=== PATIENT | female | born 1950 | race Caucasian/White ===

== ENCOUNTER 2025-04-04 12:29 | Outpatient (CLI) | payer MEDICARE, BC ==
[~2025-04-04] VITALS: Ht 165.7 cm; Wt 59.0 kg
[2025-04-04 12:59] LABS: ABG BASE EXCESS -0.3 mmol/L (-2.0-3.0); ABG HCO3 23.8 mmol/L (21.0-28.0); ABG OXYGEN SATURATION 95.6 % (94.0-98.0); ABG PH (T) 7.426 (7.350-7.450); ABG PO2 (T) 80.3 mmHg (83.0-108.0); ALLEN'S TEST POSITIVE; FCOHb 0.6 % (0.5-1.5); FHHb 4.4 % (0.0-5.0); FMetHb 0.3 % (0.0-1.5); FO2Hb 94.7 % (94.0-98.0); MODE ROOM AIR
[2025-04-04] MEDS: albuterol 2.5 MG/3 ML nebule NEB ONE (13:41)
[2025-04-04 13:45] VITALS: PULSE 61; RESP 19; O2SAT 97
[2025-04-04 13:57] VITALS: PULSE 65; RESP 16
--- NOTE | 2025-04-05 13:32 | PROCEDURE NOTE - Respiratory ---
Procedure Note-Respiratory Providers to Copies To 1: [facility] PEDERSON MD Procedure Name: This is a complete pulmonary function study dated April 04, 2025. Hemoglobin measurement was done as part of the study. There was also a room air blood gas obtained from this patient on the same date. Spirometry measurements: There is mild reduction in the forced vital capacity. There is more severe reduction in the FEV1 measurement. The FEV1 ratio is also substantially reduced. All of the measured flow rates show substantial reduction. After inhaled bronchodilator was administered, the FEV1 and the flow rates show significant improvement. Spirometry documents severe airway obstruction with slight reversibility using inhaled bronchodilator. Lung volume measurements: The total lung capacity is in the upper range of normal. There is elevation of the functional residual capacity and the residual volume. This indicates gas trapping within the lungs. Lung diffusion measurement: There is mild reduction in the DLCO measurement. It is noted that the hemoglobin measurement is in the normal range. Airway resistance measurement: The airway resistance is clearly elevated. This again suggests significant airway obstruction. Overall conclusion: This study is severely abnormal. There is evidence for severe obstructive ventilatory defect. 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 The patient improved slightly with inhaled bronchodilator. Clinical use of bronchodilator medication may very well help this patient. The lung diffusion measurement is somewhat reduced suggesting part of the COPD process includes an emphysema component. We have no previous studies for comparison. Close pulmonary follow-up is recommended. A blood gas was drawn from this patient while the patient was breathing room a ir. The blood pH is normal. The pCO2 is normal. The PO2 is borderline reduced at 80 mmHg. HUMBERTO DO MD Apr 05, 2025 13:32
== END 2025-04-04 23:59 | disposition home or self-care (01) ==
LOC: RT 12:29
PROVIDERS: ATTEND Surgery
DX: J98.4 Other disorders of lung (principal)
CPT/HCPCS: 36600; 82803; 85018; 94060; 94727; 94729; 94760